=== PATIENT | female | born 1980 | race Hispanic/Latino ===

== ENCOUNTER 2019-04-08 22:10 | Emergency (ER) | payer MEDICARE, OTHER ==
[~2019-04-08] VITALS: Ht 165.1 cm; Wt 84.4 kg
--- OUTSIDE RECORDS SUMMARY | 2019-04-08 22:12 | XMS REPORT ---
Author Author [facility] Address Unknown Phone Unavailable Care Team Providers Care Elementary Assistant Teacher Name Role Phone Unavailable Unavailable Payers Payer Name Policy Type Policy Number Effective Date Expiration Date Problems This patient has no known problems. Allergies, Adverse Reactions, Alerts Allergy Name Allergy Type Status Severity Reaction(s) Onset Date Inactive Date Treating Clinician Comments No Known Allergies DA Active U 2018-12-19 00:00:00 Medications This patient has no known medications. Results Test Description Test Time Test Comments Text Results Atomic Results Result Comments MAGNESIUM 2018-12-20 05:01:00 MAGNESIUM (test code=MAG) 4.9 mg/dL 1.6-2.3 CBC W/AUTO [id number] 04:50:00* Test Item Value Reference Range Comments WHITE BLOOD CELL (test code=WBC) 8.7 x10 3/uL 5.0-12.0 RED BLOOD CELL (test code=RBC) 3.09 x10 6/uL 4.20-5.40 HEMOGLOBIN (test code=HGB) 8.8 g/dL 12.0-16.0 HEMATOCRIT (test code=HCT) 26.7 % 36.0-46.0 MEAN CELL VOLUME (test code=MCV) 86 fL 81-99 MEAN CELL HGB (test code=MCH) 28.5 pg 27-31 MEAN CELL HGB CONCENTRATION (test code=MCHC) 33.0 g/dL 33-37 RED CELL DISTRIBUTION WIDTH (test code=RDW) 14.3 % 11.5-15.5 PLATELET COUNT (test code=PLT) 192 x10 3/uL 130-400 MEAN PLATELET VOLUME (test code=MPV) 10.2 fL 9.4-16.4 NEUTROPHIL % (test code=NT%) 79.9 % 43-65 IMMATURE GRANULOCYTE % (test code=IG%) 0.2 % 0.0-2.0 LYMPHOCYTE % (test code=LY%) 16.7 % 20.5-45.5 MONOCYTE % (test code=MO%) 2.8 % 5.5-11.7 EOSINOPHIL % (test code=EO%) 0.3 % 0.9-2.9 BASOPHIL % (test code=BA%) 0.1 % 0.2-1.0 NUCLEATED RBC % (test code=NRBC%) 0.0 % 0-1.0 NEUTROPHIL # (test code=NT#) 6.91 x10 3/uL 2.2-4.8 IMMATURE GRANULOCYTE # (test code=IG#) 0.02 x10 3/uL 0-0.03 LYMPHOCYTE # (test code=LY#) 1.45 x10 3/uL 1.3-2.9 MONOCYTE # (test code=MO#) 0.24 x10 3/uL 0.3-0.8 EOSINOPHIL # (test code=EO#) 0.03 x10 3/uL 0.0-0.2 BASOPHIL # (test code=BA#) 0.01 x10 3/uL 0.0-0.1 AG HEPATITIS B [id number] 05:51:00* Test Item Value Reference Range Comments AG HEPATITIS B SURFACE (test code=HBSAG) NEGATIVE NEGATIVE AB HIV 1 05:51:00* Test Item Value Reference Range Comments AB HIV 1 2 (test code=MKJ29PR) NEGATIVE NEGATIVE AG HEPATITIS B [id number] 05:42:00* Test Item Value Reference Range Comments AG HEPATITIS B SURFACE (test code=HBSAG) NEGATIVE NEGATIVE AB HIV 1 05:42:00* Test Item Value Reference Range Comments AB HIV 1 2 (test code=IQS50VP) NEGATIVE RAPID PLASMA [id number] 05:29:00* Test Item Value Reference Range Comments RAPID PLASMA REAGIN (test code=RPR) NONREACTIVE NONREACTIVE ~~~~~~~~~~~~~~~~~~~~~~~~~~~~~~~~~~~~~~~~~~~~~~~~~REACTIVE RESULTS ARE VERIFIED BY REPEAT TESTING.SPECIMENS WITH REACTIVE RESULTS ARE SENT TO REFERENCE LAB FOR CONFIRMATION BY FTA.~~~~~~~~~~~~~~~~~~ ~~~~~~~~~~~~~~~~~~~~~~~~~~~~~~~ LIVER FUNCTION [id number] 05:15:00* Test Item Value Reference Range Comments TOTAL PROTEIN (test code=PROT) 6.5 g/dL 6.3-8.2 ALBUMIN (test code=ALB) 3.3 g/dL 3.5-5.0 BILIRUBIN TOTAL (test code=BILT) 0.6 mg/dL 0.2-1.3 BILIRUBIN CONJUGATED (test code=BILCON) 0 mg/dL 0-0.3 ~~~~~~~~~~~~~~~~~~~~~~~~~~~~~~~~~~~~~~~~~~~~~~~~~~~~~~~~~~~~CONJUGATED BILIRUBIN IS THE REPLACEMENT ASSAY FOR DIRECTBILIRUBIN.~~~~~~~~~~~~~~~~~~~~~~~~~~~~~~~~~~~~~~~~~~~~~~~~~~~~~~~~~~~~ BILIRUBIN UNCONJUGATED (test code=BILUNC) 0.2 mg/dL 0-1.1 SGOT/AST (test code=AST) 12 U/L 15-46 SGPT/ALT (test code=ALT) 20 U/L 13-69 ALKALINE PHOSPHATASE (test code=ALKP) 90 U/L 38-126 BLOOD UREA [id number] 05:15:00* Test Item Value Reference Range Comments BLOOD UREA NITROGEN (test code=BUN) 18 mg/dL 7-17 [id number] 05:15:00* Test Item Value Reference Range Comments CREATININE (test code=CREAT) 0.6 mg/dL 0.5-1.0 URIC [id number] 05:15:00* Test Item Value Reference Range Comments URIC ACID (test code=URIC) 3.7 mg/dL 2.5-6.2 LIVER FUNCTION [id number] 05:12:00* Test Item Value Reference Range Comments TOTAL PROTEIN (test code=PROT) 6.5 g/dL 6.3-8.2 ALBUMIN (test code=ALB) 3.3 g/dL 3.5-5.0 BILIRUBIN TOTAL (test code=BILT) 0.6 mg/dL 0.2-1.3 BILIRUBIN CONJUGATED (test code=BILCON) 0 mg/dL 0-0.3 ~~~~~~~~~~~~~~~~~~~~~~~~~~~~~~~~~~~~~~~~~~~~~~~~~~~~~~~~~~~~CONJUGATED BILIRUBIN IS THE REPLACEMENT ASSAY FOR DIRECTBILIRUBIN.~~~~~~~~~~~~~~~~~~~~~~~~~~~~~~~~~~~~~~~~~~~~~~~~~~~~~~~~~~~~ BILIRUBIN UNCONJUGATED (test code=BILUNC) 0.2 mg/dL 0-1.1 SGOT/AST (test code=AST) 12 U/L 15-46 SGPT/ALT (test code=ALT) 20 U/L 13-69 ALKALINE PHOSPHATASE (test code=ALKP) 90 U/L 38-126 BLOOD UREA [id number] 05:12:00* Test Item Value Reference Range Comments BLOOD UREA NITROGEN (test code=BUN) 18 mg/dL 7-17 [id number] 05:12:00* Test Item Value Reference Range Comments CREATININE (test code=CREAT) 0.6 mg/dL 0.5-1.0 URIC [id number] 05:12:00* Test Item Value Reference Range Comments URIC ACID (test code=URIC) mg/dL 2.5-6.2 UA RFLX MICR CULT IF [id number] 05:08:00* Test Item Value Reference Range Comments UA COLOR (test code=COLU) Miriam Yellow UA APPEARANCE (test code=APPU) Cloudy Clear UA GLUCOSE DIPSTICK (test code=DGLUU) Negative Negative UA BILIRUBIN DIPSTICK (test code=BILU) Negative Negative UA KETONE DIPSTICK (test code=KETU) 15 (1+) mg/dL Negative UA SPECIFIC GRAVITY (test code=SGU) 1.030 <1.030 UA BLOOD DIPSTICK (test code=ANGELLA) 3+ Negative UA PH DIPSTICK (test code=DENIS) 5.0 5.0-8.0 UA PROTEIN DIPSTICK (test code=PROU) 30 (1+) mg/dL Negative UA UROBILINOGEN DIPSTICK (test code=URO) 4.0 mg/dL Negative UA NITRITE DIPSTICK (test code=RAMON) Negative Negative UA LEUKOCYTE ESTERASE DIPSTICK (test code=LEUU) 3+ Negative UA WBC (test code=WBCUR) 51-100 /HPF <4-5 >10 WBC/HPF=PYURIA PRESENT URINE CULTURE PROCESSED UA RBC (test code=RBCU) 11-20 /HPF <4-5 UA BACTERIA (test code=BACU) 2+ /HPF None-Rare UA SQUAMOUS CELLS (test code=SQU) >25 (MANY) /HPF 0-5 (RARE) UA MUCUS (test code=MUCU) 1+ /LPF <Rare UA YEAST (BUDDING) (test code=YEASTUBD) Rare /HPF None less than 18 yrs old, neutropenic, or urological surgery? NOPrimary Indication f or Culture: PregnancyAMNISURE (ROM) [id number] 05:05:00* Test Item Value Reference Range Comments AMNISURE (ROM) TEST (test code=AMNI) NEGATIVE NEGATIVE PROTHROMBIN [id number] 04:57:00* Test Item Value Reference Range Comments PROTHROMBIN TIME PATIENT (test code=PTP) 10.0 SECONDS 9.2-12.1 INTERNATIONAL NORMAL RATIO (test code=INR) 0.9 The INR is to be used only for monitoring ORAL ANTICOAGULANTTHERAPY. Indication INR Value1. Prophylaxis/treatment of: Venous Thrombosis, Pulmonary Embolism 2.0 - 3.02. Prevention of systemic embolism from: Tissue heart valves 2.0 - 3.0 Acute myocardial infarction (to present systemic embolism)* 2.0 - 3.0 Valvular heart disease 2.0 - 3.0 Atrial fibrillation 2.0 - 3.03. Mechanical prosthetic valves (high risk) 2.5 - 3.5 * If oral anticoagulant therapy is elected to preventrecurrent myocardial infarction, an INR of 2.5-3.5 isrecommended, consistent with Food and Drug Administrationrecommendations. THROMBOPLASTIN TIME [id number] 04:57:00* Test Item Value Reference Range Comments THROMBOPLASTIN TIME PARTIAL (test code=PTT) 26.0 SECONDS 23.4-37.0 Therapeutic Range for Heparin EFFECTIVE 03/29/13 Heparin IU/mL aPTT Seconds0.3 64.30.7 88.8 [id number] 04:57:00* Test Item Value Reference Range Comments FIBRINOGEN (test code=FIB) 357 mg/dL 178-395 CBC W/AUTO [id number] 04:43:00* Test Item Value Reference Range Comments WHITE BLOOD CELL (test code=WBC) 9.8 x10 3/uL 5.0-12.0 RED BLOOD CELL (test code=RBC) 3.82 x10 6/uL 4.20-5.40 HEMOGLOBIN (test code=HGB) 10.7 g/dL 12.0-16.0 HEMATOCRIT (test code=HCT) 32.7 % 36.0-46.0 MEAN CELL VOLUME (test code=MCV) 86 fL 81-99 MEAN CELL HGB (test code=MCH) 28.0 pg 27-31 MEAN CELL HGB CONCENTRATION (test code=MCHC) 32.7 g/dL 33-37 RED CELL DISTRIBUTION WIDTH (test code=RDW) 13.8 % 11.5-15.5 PLATELET COUNT (test code=PLT) 216 x10 3/uL 130-400 MEAN PLATELET VOLUME (test code=MPV) 10.2 fL 9.4-16.4 NEUTROPHIL % (test code=NT%) 77.2 % 43-65 IMMATURE GRANULOCYTE % (test code=IG%) 0.3 % 0.0-2.0 LYMPHOCYTE % (test code=LY%) 17.9 % 20.5-45.5 MONOCYTE % (test code=MO%) 4.3 % 5.5-11.7 EOSINOPHIL % (test code=EO%) 0.2 % 0.9-2.9 BASOPHIL % (test code=BA%) 0.1 % 0.2-1.0 NUCLEATED RBC % (test code=NRBC%) 0.0 % 0-1.0 NEUTROPHIL # (test code=NT#) 7.56 x10 3/uL 2.2-4.8 IMMATURE GRANULOCYTE # (test code=IG#) 0.03 x10 3/uL 0-0.03 LYMPHOCYTE # (test code=LY#) 1.75 x10 3/uL 1.3-2.9 MONOCYTE # (test code=MO#) 0.42 x10 3/uL 0.3-0.8 EOSINOPHIL # (test code=EO#) 0.02 x10 3/uL 0.0-0.2 BASOPHIL # (test code=BA#) 0.01 x10 3/uL 0.0-0.1
[2019-04-08] MEDS ORDERED: METHYLPREDNISOLONE SOD SUCC 125 MG/2ML VIAL ONE (22:47)
[2019-04-08] MEDS ORDERED: EPINEPHRINE HCL 1:1000 1ML 1 MG/ML AMP ONE (22:47)
[2019-04-08] MEDS ORDERED: DIPHENHYDRAMINE HCL INJ 50 MG/ML VIAL ONE (22:47)
[2019-04-08] MEDS: EPINEPHRINE HCL 1:1000 1ML 1 MG/ML AMP INJ ONE (23:00)
[2019-04-08] MEDS: DIPHENHYDRAMINE HCL INJ 50 MG/ML VIAL IV ONE (23:11)
[2019-04-08] MEDS: METHYLPREDNISOLONE SOD SUCC 125 MG/2ML VIAL IV ONE (23:12)
[2019-04-08 23:46] VITALS: BP 122/72
== END 2019-04-09 00:01 | disposition home or self-care (01) ==
LOC: FSED 22:10
DX: L27.2 Dermatitis due to ingested food (principal); L50.0 Allergic urticaria; Z98.84 Bariatric surgery status
CPT/HCPCS: 93971; 96372; 99282; J0171; J1200; J2930